=== PATIENT | male | born 1970 | race Caucasian/White ===

== ENCOUNTER 2022-02-10 17:24 | Emergency (ER) | payer OTHER ==
[~2022-02-10 17:24] MED LIST: ASPIRIN EC81 MG PO; LAMICTAL (BLUE)25 MG PO; LISINOPRIL-HCT1 EAC2 PO; MOBIC7.5 MG PO; NITROGLYCERIN0.4 MG SL; PAXIL40 MG PO
[2022-02-10 19:30] LABS: BASOPHIL 0.4 % (0-2); EOSINOPHIL 2.4 % (0-5); HCT 44.2 % (42.0-52.0); HGB 15.1 g/dl (13.2-18.0); LYMPHOCYTE 22.6 % (15-48); MCH 30.3 pg (25.0-31.0); MCHC 34.2 g/dL (32.0-36.0); MCV 88.6 fL (78.0-100.0); MONOCYTE 6.3 % (0-12); MPV 8.7 fL (6.0-9.5); NEUTROPHIL 67.7 % (41-80); NRBC 0; PLT 343 K/uL (150-400); RBC 4.99 M/uL (4.70-6.00); RDW 12.5 % (11.5-14.0); WBC 15.7 K/uL (4.0-10.5)
[2022-02-10 19:40] LABS: BILIRUBIN NEGATIVE (NEGATIVE); BLOOD NEGATIVE Ery/uL (NEGATIVE); CLARITY CLEAR (CLEAR); COLOR YELLOW (YELLOW); GLUCOSE (U) NORMAL (NORMAL); LEUKOCYTES NEGATIVE Leu/uL (NEGATIVE); NITRITE NEGATIVE (NEGATIVE); PROTEIN NEGATIVE (NEGATIVE); UROBILINOGEN 0.2 mg/dL (0.2-1.0)
[2022-02-10 19:57] LABS: ALBUMIN 3.6 g/dL (3.4-5.0); BILIRUBIN - TOTAL 0.4 mg/dL (0.2-1.0); BUN/CREAT RATIO (CALC) 14.7 RATIO; CREATININE 1.02 mg/dL (0.67-1.17); GLOBULIN (CALCULATION) 3.5 g/dL; POTASSIUM 3.2 mmol/L (3.5-5.1); TOTAL PROTEIN 7.1 g/dL (6.4-8.2)
[2022-02-10 20:10] LABS: CORONAVIRUS 2019 SARS-COV-2 NEGATIVE (NEGATIVE); INFLUENZA A NAA NEGATIVE (NEGATIVE)
[2022-02-10] MEDS ORDERED: CLEOCIN300 MG PO (21:39)
== END 2022-02-10 22:15 | disposition home or self-care (01) ==
LOC: FER 17:24
PROVIDERS: Emergency Medicine; Internal Medicine
DX: H92.02 Otalgia, left ear (principal); H93.12 Tinnitus, left ear; R07.89 Other chest pain; I10 Essential (primary) hypertension; F17.290 Nicotine dependence, other tobacco product, uncomplicated; Z20.822 Contact with and (suspected) exposure to COVID-19; Z88.0 Allergy status to penicillin
CPT/HCPCS: 36415; 70487; 71045; 80053; 81003; 83880; 84484; 85025; 85379; 93005; J1885; U0002